=== PATIENT | female | born 1980 | race Caucasian/White ===

== ENCOUNTER 2020-04-05 17:05 | Emergency (ER) | payer OTHER, SELFPAY ==
[2020-04-05 17:26] VITALS: BP 125/80; PULSE 95; RESP 20; TEMP 36.3; O2SAT 96
--- NOTE | 2020-04-05 17:33 | ED.HEATRA ---
HPI - Head Injury General Chief complaint: Headache Stated complaint: face injury Time Seen by Provider: 04/05/20 17:09 Source: patient and RN notes reviewed Mode of arrival: ambulatory Limitations: no limitations History of Present Illness HPI Narrative: Patient states she was walking out of an office yesterday. She tripped over her feet and hit the edge of the door with her forehead. She still has a headache. She having some mild nausea. She had no loss of consciousness. She denies any change in her mentation. She denies any difficulty walking. She denies any visual changes. Complaint: head injury Onset (ago): day(s) (1) Mechanism of Injury: other Place: other (business ) Loss of Consciousness: no Severity: moderate Quality: dull and aching Radiation: none Other Injuries: none Associated symptoms: nausea Related Data Home Medications Medication Instructions Recorded Confirmed albuterol sulfate 2 inh INHALATION Q4-6H PRN 04/05/20 04/05/20 atorvastatin 40 mg PO DAILY 04/05/20 04/05/20 furosemide 20 mg PO DAILY 04/05/20 04/05/20 glimepiride 4 mg PO DAILY 04/05/20 04/05/20 linagliptin [Tradjenta] 5 mg PO DAILY 04/05/20 04/05/20 lisinopril 10 mg PO DAILY 04/05/20 04/05/20 meloxicam 15 mg PO DAILY 04/05/20 04/05/20 sertraline 100 mg PO DAILY 04/05/20 04/05/20 Allergies Allergy/AdvReac Type Severity Reaction Status Date / Time insulin glargine Allergy Unknown Verified 04/05/20 17:54 [From Lantus U-100 Insulin] Review of Systems Review of Systems: All systems reviewed & are unremarkable except as noted in HPI and below PMFSH Past Medical History Medical History (Updated 04/05/20 @ 17:41 by Francisco Javier Diaz MD) Hyperlipidemia Hypertension Morbid obesity Type 2 diabetes mellitus Surgical History Surgical History (Updated 04/05/20 @ 17:41 by Francisco Javier Diaz MD) History of cholecystectomy History of knee surgery Previous section Social History Social History (Updated 04/05/20 @ 17:41 by Francisco Javier Diaz MD) Smoking packs per day: 1 Smoking cigarettes per day: 20.0 Smoking status: Current every day smoker Tobacco type: cigarettes Alcohol intake: never Substance use: never Gender identity (if verbalized by the patient): Female Exam Const: General: healthy appearing, no acute distress and alert Nutritional Appearance: well nourished and obese morbidly obese Orientation/consciousness: patient oriented x3 Other: Female nurse in room during examination. HENMT: Head: normal to inspection and contusion ( center of Forehead with some mild swelling) Ears: external ears normal and TM's normal bilaterally ( no hemotympanum) General nose exam: Normal external nose present and Normal nares present Face and sinus: normal facial exam Eyes: Conjunctivae: conjunctivae normal Pupils: Equal, round and reactive pupils present EOM: EOMs intact bilaterally Direct Ophthalmoscopy: no photophobia Neck: Neck: normal visual inspection Resp: Effort & Inspection: normal respiratory effort Auscultation: clear to auscultation bilaterally Cardio: Rate: regular rate Rhythm: regular rhythm GI: GI Palp: Yes Soft to palpation and No Tenderness to palpation present (GI) Auscultation: normal bowel sounds Back/Spine/Pelvis: Cervical Spine: cervical ROM normal Thoracic/Lumbar Spine: thoraco-lumbar ROM normal Skin: General skin exam: normal color Rashes: no rashes Neuro: General: patient oriented x3, moves all extremities and no focal motor deficits Cranial nerves: Yes Nystagmus not present Speech: normal speech Gait exam (Neuro): Normal gait present Extrem: General: normal to inspection and no clubbing, cyanosis or edema Psych: Appearance: grossly normal and well kempt Mental Status: mental status grossly normal Attitude: cooperative Thought content: Yes Normal thought content present Course Vital Signs Vital signs: Vital Signs Temperature 36.3 C L 04/05/20 17:26 Pulse
[2020-04-05] MEDS: KETOROLAC (*BKC) 60 MG/2 ML VIAL IM (17:38)
[2020-04-05] MEDS: ONDANSETRON HCL ODT 4 MG TABLET PO (17:39)
[2020-04-05 18:16] VITALS: PULSE 90; RESP 20; O2SAT 96
== END 2020-04-05 18:16 | disposition home or self-care (01) ==
PROVIDERS: Emergency Provider Emergency Medicine; PCP Physician Assistant
DX: G44.319 Acute post-traumatic headache, not intractable (principal)
CPT/HCPCS: 96372; 99283; A9270; J1885

== ENCOUNTER 2020-04-13 09:31 | Outpatient (CLI) | payer OTHER, SELFPAY ==
--- NOTE | ~2020-04-13 | MM_ITS ---
EXAMINATION: MM screening [facility] HISTORY: Screening mammogram TECHNIQUE: Craniocaudal and mediolateral oblique 3-D tomosynthesis images were obtained and synthetic 2-D images were generated. CAD analysis was submitted and interpreted. COMPARISON: None, baseline BREAST PARENCHYMAL COMPOSITION: There are scattered areas of fibroglandular density. FINDINGS: There is no evidence of suspicious mass, calcification, or architectural distortion to sugg est malignancy in either breast. IMPRESSION: 1. No mammographic evidence of malignancy. 2. Recommend routine screening mammography in one year. BI-RADS Category 1: Negative Reviewed, dictated and finalized at location A. 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
== END 2020-04-13 09:32 | disposition home or self-care (01) ==
LOC: CHSIMG 09:32
PROVIDERS: PCP Physician Assistant; Visit Provider Physician Assistant
DX: Z12.31 Encounter for screening mammogram for malignant neoplasm of breast (principal)
CPT/HCPCS: 77063; 77067

== ENCOUNTER 2020-06-17 12:06 | Outpatient (CLI) | payer OTHER, SELFPAY ==
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
== END 2020-06-17 12:07 | disposition home or self-care (01) ==
LOC: CHSIMG 12:08
PROVIDERS: PCP Family Medicine; Visit Provider Physician Assistant
DX: R68.84 Jaw pain (principal)
CPT/HCPCS: 70110

== ENCOUNTER 2020-11-14 20:30 | Emergency (ER) | payer OTHER, SELFPAY ==
--- NOTE | ~2020-11-14 | XR_ITS ---
EXAMINATION: XR knee LT 2V DATE: 11/14/2020 21:11 INDICATION: Left knee injury. TECHNIQUE: 2 views of left knee were obtained. COMPARISON: Left knee radiographs 12/30/2017 FINDINGS: Bone alignment is normal. No fracture. There is severe osteoarthritis of lateral and patell ofemoral compartments and mild osteoarthritis of medial compartment. No knee joint effusion. Calcific ations posterior to the knee are likely loose bodies in a Cooper's cyst. IMPRESSION: 1. Severe left knee osteoarthritis. Reviewed, dictated and finalized at location A.
[2020-11-14 20:35] VITALS: BP 120/78; PULSE 94; RESP 20; TEMP 36.9; O2SAT 96
[2020-11-14] MEDS: KETOROLAC (*BKC) 60 MG/2 ML VIAL IM (20:55)
[2020-11-14] MEDS: ONDANSETRON HCL ODT 4 MG TABLET PO (20:55)
--- NOTE | 2020-11-14 21:17 | ED.LOWEXIN ---
HPI - Extremity Injury (Lower) General Chief Complaint: Extremity Injury, Lower Stated Complaint: Fell yesterday Left foot and leg pain Source: patient Mode of arrival: wheelchair Limitations: no limitations History of Present Illness HPI Narrative: this is a 40-year-old female presents with left knee injury that occurred yesterday when she fell and hurt her knee tracing her 5-year-old, patient has some point tenderness anterior knee with decreased range of motion secondary to pain and inflammation. complaint: knee injury Onset (ago): day(s) Injury: Left: knee ( pain with decreased range of motion) Type of Injury: blunt Place: home Severity: moderate Severity scale (1-10): 8 Relieving factors: immobilization Exacerbating factors: weight bearing, movement and palpation Context: fall Related Data Home Medications Medication Instructions Recorded Confirmed albuterol sulfate 2 inh INHALATION Q4-6H PRN 04/05/20 11/14/20 atorvastatin 40 mg PO DAILY 04/05/20 11/14/20 furosemide 20 mg PO DAILY 04/05/20 11/14/20 glimepiride 4 mg PO DAILY 04/05/20 11/14/20 linagliptin [Tradjenta] 5 mg PO DAILY 04/05/20 11/14/20 lisinopril 10 mg PO DAILY 04/05/20 11/14/20 meloxicam 15 mg PO DAILY 04/05/20 11/14/20 sertraline 100 mg PO DAILY 04/05/20 11/14/20 Allergies Allergy/AdvReac Type Severity Reaction Status Date / Time insulin glargine Allergy Unknown Verified 04/05/20 17:54 [From Lantus U-100 Insulin] Review of Systems Review of Systems: All systems reviewed & are unremarkable except as noted in HPI and below PMFSH Past Medical History Medical History Hyperlipidemia Hypertension Morbid obesity Type 2 diabetes mellitus Surgical History Surgical History History of cholecystectomy History of knee surgery Previous section Social History Social History Smoking packs per day: 1 Smoking cigarettes per day: 20.0 Smoking status: Current every day smoker Tobacco type: cigarettes Alcohol intake: never Substance use: never Gender identity (if verbalized by the patient): Female Exam Const: General: no acute distress Orientation/consciousness: patient oriented x3 HENMT: Head: normal to inspection Eyes: General: appearance normal, both eyes and all related structures Conjunctivae: conjunctivae normal Pupils: Equal, round and reactive pupils present Neck: Neck: no lymphadenopathy and no meningeal signs Chest: Chest palpation & inspection: normal inspection of the chest Resp: Effort & Inspection: normal respiratory effort Cardio: Rate: regular rate Rhythm: regular rhythm GI: GI Palp: Yes Soft to palpation Percussion: Yes normal to percussion Urinary Catheter: Urinary Catheter: patent and draining Back/Spine/Pelvis: Back: no CVA tenderness Skin: General skin exam: normal color Rashes: no rashes Neuro: General: patient oriented x3, moves all extremities and no meningeal signs Extrem: Other: Tender anterior right knee and decreased range of motion secondary to pain and inflammation. Psych: Mental Status: mental status grossly normal Affect: normal affect Attitude: cooperative Course Course Emergency Course: Patient received IM Toradol with some minimal relief reviewed x-ray of the knee which shows no acute fractures patient continues to have pain and will give 2mg IM morphine. Vital Signs Vital signs: Vital Signs Temperature 36.9 C 11/14/20 20:35 Pulse Rate 94 11/14/20 20:35 Respiratory Rate 11/14/20 20:35 Blood Pressure 120/78 11/14/20 20:35 Pulse Oximetry 96 11/14/20 20:35 Temperature 36.9 C 11/14/20 20:35 Pulse Rate 94 11/14/20 20:35 Respiratory Rate 20 11/14/20 20:35 Blood Pressure 120/78 11/14/20 20:35 Pulse Oximetry 96 11/14/20 20:35 Critical Care Time Cri
[2020-11-14] MEDS: MORPHINE SULFATE (*CRX) 4 MG/ML INJ IM (21:25)
[2020-11-14 21:41] VITALS: BP 134/74; PULSE 84; RESP 20; TEMP 36.6; O2SAT 99
== END 2020-11-14 21:45 | disposition home or self-care (01) ==
PROVIDERS: Emergency Provider Emergency Medicine; PCP Family Medicine
DX: S86.912A Strain of unspecified muscle(s) and tendon(s) at lower leg level, left leg, initial encounter (principal); W19.XXXA Unspecified fall, initial encounter
CPT/HCPCS: 73560; 96372; 99283; 99284; A9270; J1885; J2270

== ENCOUNTER 2021-01-05 14:37 | Emergency (ER) | payer OTHER, SELFPAY ==
[2021-01-05 15:15] VITALS: BP 132/72; PULSE 88; RESP 16; TEMP 36.6; O2SAT 97
--- NOTE | 2021-01-05 15:34 | ED.DENTAL ---
HPI - Dental/Oral General Chief complaint: Dental/Oral Stated complaint: broken tooth-swelling and pain in jaw. Source: patient Mode of arrival: ambulatory Limitations: no limitations History of Present Illness HPI Narrative: This is a 40-year-old female that presents after she had a tooth fracture broken tooth right upper molar currently with no fever chills no nausea vomiting no shortness of breath although she does have pain that she rates about 8/10 and surrounding gum inflammation with no drainage does have right submandibular gland swelling and tenderness with palpation. MD Complaint: tooth pain and tooth injury Teeth map: 1. fractured tooth right upper molar with surrounding gum inflammation jaw swelling and tender submandibular gland. Onset (ago): day(s) Duration: constant Severity: moderate Severity scale (1-10): 8 Relieving factors: nothing Exacerbating factors: nothing Related Data Home Medications Medication Instructions Recorded Confirmed albuterol sulfate 2 inh INHALATION Q4-6H PRN 04/05/20 11/14/20 atorvastatin 40 mg PO DAILY 04/05/20 11/14/20 furosemide 20 mg PO DAILY 04/05/20 11/14/20 glimepiride 4 mg PO DAILY 04/05/20 11/14/20 linagliptin [Tradjenta] 5 mg PO DAILY 04/05/20 11/14/20 lisinopril 10 mg PO DAILY 04/05/20 11/14/20 meloxicam 15 mg PO DAILY 04/05/20 11/14/20 sertraline 100 mg PO DAILY 04/05/20 11/14/20 Allergies Allergy/AdvReac Type Severity Reaction Status Date / Time insulin glargine Allergy Unknown Verified 04/05/20 17:54 [From Lantus U-100 Insulin] Review of Systems Review of Systems: All systems reviewed & are unremarkable except as noted in HPI and below PMFSH Past Medical History Medical History Hyperlipidemia Hypertension Morbid obesity Type 2 diabetes mellitus Surgical History Surgical History History of cholecystectomy History of knee surgery Previous section Social History Social History Smoking packs per day: 1 Smoking cigarettes per day: 20.0 Smoking status: Current every day smoker Tobacco type: cigarettes Alcohol intake: never Substance use: never Gender identity (if verbalized by the patient): Female Exam Const: General: no acute distress and alert Orientation/consciousness: patient oriented x3 HENMT: Head: normal to inspection Eyes: Conjunctivae: conjunctivae normal Pupils: Equal, round and reactive pupils present Neck: Neck: normal visual inspection, no lymphadenopathy and no meningeal signs Chest: Chest palpation & inspection: normal inspection of the chest GI: Auscultation: normal bowel sounds Urinary Catheter: Urinary Catheter: patent and draining Back/Spine/Pelvis: Back: no CVA tenderness Neuro: General: patient oriented x3, moves all extremities and no meningeal signs Extrem: General: normal to inspection and no pedal edema Psych: Mental Status: mental status grossly normal Course Course Emergency Course: Patient with some fractured tooth with surrounding gum inflammation medical assistant prn a dose of IM Toradol and will be sending pain medication and antibiotics and advised follow-up with her dentist. Vital Signs Vital signs: Vital Signs Temperature 36.6 C 01/05/21 15:15 Pulse Rate 88 01/05/21 15:15 Respiratory Rate 16 01/05/21 15:15 Blood Pressure 132/72 01/05/21 15:15 Pulse Oximetry 97 01/05/21 15:15 Temperature 36.6 C 01/05/21 15:15 Pulse Rate 88 01/05/21 15:15 Respiratory Rate 16 01/05/21 15:15 Blood Pressure 132/72 01/05/21 15:15 Pulse Oximetry 97 01/05/21 15:15 Critical Care Time Critical Care Time Critical Care Time: No Discharge Plan Discharge Clinical Impression: Toothache, Dental abscess Fracture of tooth Qualifiers: Encounter type: initial encounter Fracture type: closed Qualifi
[2021-01-05] MEDS: KETOROLAC (*BKC) 60 MG/2 ML VIAL IM (15:46)
== END 2021-01-05 15:56 | disposition home or self-care (01) ==
PROVIDERS: Emergency Provider Emergency Medicine; PCP Family Medicine
DX: S02.5XXA Fracture of tooth (traumatic), initial encounter for closed fracture (principal)
CPT/HCPCS: 96372; 99283; J1885

== ENCOUNTER 2021-04-17 11:12 | Outpatient (CLI) | payer OTHER, SELFPAY ==
--- NOTE | ~2021-04-17 | XR_ITS ---
XR knee LT 3V DATE: 04/17/2021 11:33 INDICATION: Left knee pain TECHNIQUE: 4 views COMPARISON: 11/14/2020 left knee FINDINGS: There is prominent tricompartment osteoarthritis, most severe at the lateral and patellofem oral compartments.. 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 No fracture or dislocation or knee joint effusion. No periosteal reaction or bone destruction. IMPRESSION: Tricompartment osteoarthritis, most pronounced at the lateral and patellofemoral componen ts Posterior osteochondromatosis Osteopenia Reviewed, dictated and finalized at location A. 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
== END 2021-04-17 11:13 | disposition home or self-care (01) ==
LOC: CHSIMG 11:15
PROVIDERS: PCP Family Medicine; Visit Provider Physician Assistant
DX: M25.562 Pain in left knee (principal)
CPT/HCPCS: 73562

== ENCOUNTER 2021-08-05 09:47 | Outpatient (CLI) | payer OTHER, SELFPAY ==
--- NOTE | ~2021-08-05 | MR_ITS ---
EXAMINATION: MR lumbar spine wo con DATE: 08/05/2021 11:54 INDICATION: Low back pain. TECHNIQUE: Magnetic resonance imaging (MRI) of the lumbar spine was performed without intravenous con trast. Sequences included sagittal T2-weighted FSE, sagittal STIR FSE, sagittal T1-weighted FSE, and axial T2-weighted FSE. COMPARISON: Lumbar spine MRI 04/09/2009 FINDINGS: There is 9 degrees levocurvature of lumbar spine. There are Schmorl's nodes at most levels. There is mildly decreased disc height at T12-L1 and L1-L2, moderately decreased disc height from L2- L3 through L4-L5, and mildly decreased disc height at L5-S1. The conus medullaris is at T12. The foll owing disc levels are specifically discussed: T12-L1: The disc is bulging with superimposed central extrusion. There is severe bilateral facet join t osteoarthritis. There is hypertrophy of the ligamentum flavum on the left. There is mild left neura l foraminal stenosis. There is severe central canal stenosis at the midline. There is asymmetric az re stenosis of left lateral recess. L1-L2: The disc is bulging. There is moderate bilateral facet joint osteoarthritis. There is mild merissa ateral neural foraminal stenosis. There is mild central canal stenosis. L2-L3: The disc is bulging with superimposed central extrusion. There is severe bilateral facet joint osteoarthritis. There is moderate bilateral neural foraminal stenosis. There is mild central canal s tenosis. There is moderate stenosis of right lateral recess. L3-L4: The disc is bulging with superimposed central extrusion. There is severe bilateral facet joint osteoarthritis. There is moderate right and mild left neural foraminal stenosis. There is mild centr al canal stenosis. There is moderate stenosis of right lateral recess. L4-L5: The disc is bulging and has an annular fissure. There is moderate right and severe left facet joint osteoarthritis. There is moderate bilateral neural foraminal stenosis. There is mild central ca nal stenosis. L5-S1: The disc is bulging and has an annular fissure. There is severe bilateral facet joint osteoart hritis. There is moderate bilateral neural foraminal stenosis. There is mild central canal stenosis. IMPRESSION: 1. Severe lumbar spondylosis, worsened from 04/09/2009. Reviewed, dictated and finalized at location A.
== END 2021-08-05 09:48 | disposition home or self-care (01) ==
LOC: CHSIMG 09:49
PROVIDERS: PCP Family Medicine; Visit Provider Family Medicine
DX: M54.50 Low back pain, unspecified (principal)
CPT/HCPCS: 72148

== ENCOUNTER 2022-10-29 16:58 | Outpatient (CLI) | payer OTHER, SELFPAY ==
--- NOTE | ~2022-10-29 | XR_ITS ---
EXAMINATION: XR shoulder RT min 2V, XR clavicle RT, XR_CERV2-3V_CR DATE: 10/29/2022 17:25 INDICATION: Right sided neck pain and right shoulder and clavicle pain post fall TECHNIQUE: 1. AP, lateral, odontoid and lateral swimmer's views of the cervical spine were obtained. 2. AP internally and externally rotated, AP oblique externally rotated and transscapular Y views of t he right shoulder were obtained. 3. AP and cephalad angled AP views of the right clavicle were obtained. COMPARISON: None FINDINGS: Cervical spine: Mild cervical dextrocurvature and mild upper thoracic levocurvature. Sagittal alignment is normal. No rmal atlantoaxial interval. Vertebral body heights are normal. Disc heights are normal with anterior degenerative endplate osteophytes at C3-C4 and C6-C7. Multilevel mild cervical facet osteoarthritis. Prevertebral soft tissues are unremarkable. Visualized portions of the upper lungs are clear. Right clavicle and shoulder: Alignment is normal. No fracture. Mild osteoarthritis at the right acromioclavicular joint. Moderate right acromioclavicular osteoarthritis with small inferiorly directed marginal osteophytes. There is also a small subacromial spur. Mild cystic change at the lesser tuberosity which can be seen with sub scapularis tendon disease. IMPRESSION: 1. Mild cervical dextrocurvature with mild spondylosis. 2. Mild right glenohumeral and moderate acromioclavicular osteoarthritis. Reviewed, dictated and finalized at location A. IMPRESSION: 1. Mild cervical dextrocurvature with mild spondylosis. 2. Mild right glenohumeral and moderate acromioclavicular osteoarthritis. IMPRESSION: 1. Mild cervical dextrocurvature with mild spondylosis. 2. Mild right glenohumeral and moderate acromioclavicular osteoarthritis.
== END 2022-10-29 16:59 | disposition home or self-care (01) ==
LOC: CHSIMG 17:00
PROVIDERS: PCP Physician Assistant; Visit Provider Physician Assistant
DX: M54.2 Cervicalgia (principal); M25.511 Pain in right shoulder; M89.8X1 Other specified disorders of bone, shoulder; M43.02 Spondylolysis, cervical region; M19.011 Primary osteoarthritis, right shoulder
CPT/HCPCS: 72040; 73000; 73030

== ENCOUNTER 2023-04-14 13:27 | Emergency (ER) | payer OTHER, SELFPAY ==
--- NOTE | ~2023-04-14 | XR_ITS ---
EXAM: XR knee LT min 4V DATE: 04/14/2023 13:56 HISTORY: twisting injury lastnight w/ popping, pain throughout . COMPARISON: 04/17/2021. FINDINGS: Normal mineralization. No fracture or dislocation. No lytic or blastic lesion. Severe tric ompartmental osteoarthritis. No erosion or periosteal change. Osteochondromatosis. Moderate joint eff usion. IMPRESSION: No acute osseous finding in the left knee. Reviewed, dictated and finalized at location K. LOPMENTAL SPECIALIST
[2023-04-14 13:31] VITALS: BP 150/99; PULSE 97; RESP 16; TEMP 36.6; O2SAT 96
--- NOTE | 2023-04-14 13:33 | ED.LOWEXIN ---
HPI - Extremity Injury (Lower) General Chief Complaint: Extremity Injury, Lower Stated Complaint: L knee injury/fall Time Seen by Provider: 04/14/23 13:31 Source: patient Mode of arrival: ambulatory Limitations: no limitations History of Present Illness HPI Narrative: Patient is a 42-year-old female with a left knee injury last night. She was cleaning up a room and twisted awkwardly and ran into the corner of the table. MD complaint: knee injury ( Left) Onset (ago): day(s) (1) Injury: Left: knee Type of Injury: blunt and other ( twist) Place: home Severity: moderate Severity scale (1-10): 5 Relieving factors: immobilization Exacerbating factors: weight bearing and movement Context: direct blow and other ( twist of the knee left) Associated symptoms: snap/pop sensation, swelling and able to partially bear weight Other symptoms: none Related Data Home Medications Medication Instructions Recorded Confirmed albuterol sulfate 90 mcg/actuation 2 inh inhalation Q4-6H PRN 04/05/20 12/29/21 aerosol inhaler Shortness Of Breath atorvastatin 40 mg tablet 40 mg PO DAILY 04/05/20 12/29/21 furosemide 20 mg tablet 20 mg PO DAILY 04/05/20 12/29/21 glimepiride 4 mg tablet 4 mg PO DAILY 04/05/20 12/29/21 linagliptin 5 mg tablet (Tradjenta) 5 mg PO DAILY 04/05/20 12/29/21 lisinopril 10 mg tablet 10 mg PO DAILY 04/05/20 12/29/21 meloxicam 15 mg tablet 15 mg PO DAILY 04/05/20 12/29/21 sertraline 100 mg tablet 100 mg PO DAILY 04/05/20 12/29/21 Allergies Allergy/AdvReac Type Severity Reaction Status Date / Time insulin glargine Allergy Unknown Verified 04/14/23 13:58 [From Lantus U-100 Insulin] Review of Systems Review of Systems: All systems reviewed & are unremarkable except as noted in HPI and below Constitutional: Constitutional: Reports no additional constitutional complaints Eyes: Eyes: Reports no additional eye complaints ENT: Reports system reviewed and no additional complaints, except as documented Cardiovascular: Cardiovascular: Reports no additional cardiovascular complaints Respiratory: Respiratory: Reports no additional respiratory complaints Gastrointestinal: Gastrointestinal: Reports no additional gastrointestinal complaints Genitourinary: Genitourinary: Reports no additional female genitourinary complaints Musculoskeletal: Musculoskeletal: Reports no additional musculoskeletal complaints Integumentary/Breasts: Skin/Breast: Reports system reviewed and no additional complaints, except as docu Neurologic: Reports system reviewed and no additional complaints, except as documented Psychiatric: Psychiatric: Reports no additional psychiatric complaints Endocrine: Endocrine: Reports no additional endocrine complaints Hematologic/Lymphatic: Hematologic/Lymphatic: Reports no additional hematologic/lymphatic complaints Allergic/Immunologic: Allergic/Immunologic: Reports no additional allergic/immunologic complaints PMFSH Past Medical History Medical History Hyperlipidemia Hypertension Morbid obesity Type 2 diabetes mellitus Surgical History Surgical History History of cholecystectomy History of knee surgery Previous section Social History Social History Smoking packs per day: 1 Smoking cigarettes per day: 20.0 Smoking status: Current every day smoker Tobacco type: cigarettes Alcohol intake: never Substance use: never Gender identity (if verbalized by the patient): Female Exam Const: General: healthy appearing Nutritional Appearance: well nourished Orientation/consciousness: patient oriented x3 HENMT: Head: normal to inspection Ears: external ears normal Face/Nose/Sinus: Normal external nose present Eyes: Conjunctivae: conjunctivae normal Pupils: Equal, round and reactive pupils present EOM: EOMs inta
[2023-04-14] MEDS: KETOROLAC (*BKC) 60 MG/2 ML VIAL IM (14:03)
--- NOTE | 2023-04-14 14:53 | PC.NURSE ---
On 04/14/23, the student, Kathrine Mcneil, provided care and completed [facility] documentation on this patient. I have reviewed the student's documentation and agree with the findings.
[2023-04-14 15:04] VITALS: BP 150/99; PULSE 97; RESP 16; TEMP 36.6; O2SAT 96
== END 2023-04-14 15:04 | disposition home or self-care (01) ==
PROVIDERS: Emergency Provider Emergency Medicine; PCP Family Medicine
DX: S83.8X2A Sprain of other specified parts of left knee, initial encounter (principal); E78.5 Hyperlipidemia, unspecified; I10 Essential (primary) hypertension; E11.9 Type 2 diabetes mellitus without complications; F17.210 Nicotine dependence, cigarettes, uncomplicated; X50.0XXA Overexertion from strenuous movement or load, initial encounter; Y92.009 Unspecified place in unspecified non-institutional (private) residence as the place of occurrence of the external cause
CPT/HCPCS: 73564; 96372; 99283; J1885

== ENCOUNTER 2023-11-27 09:48 | Outpatient (CLI) | payer OTHER, SELFPAY ==
--- NOTE | ~2023-11-27 | XR_ITS ---
EXAMINATION: XR lumbar spine 2-3V DATE: 11/27/2023 10:15 INDICATION: Low back pain. TECHNIQUE: 3 views of lumbar spine were obtained. COMPARISON: Lumbar spine radiographs 05/30/2009, MRI 08/05/2021 FINDINGS: There is 12 degrees levoscoliosis of lumbar spine. There is mild chronic anterior wedging o f T11 vertebral body. There is mildly decreased disc height at L1-L2 and L2-L3, moderately decreased disc height at L3-L4 and L4-L5, and mildly decreased disc height at L5-S1. There are endplate osteoph ytes at all levels. There is multilevel severe facet joint osteoarthritis. Surgical clips in the righ t upper quadrant are likely from cholecystectomy. IMPRESSION: 1. Moderate lumbar spondylosis. 2. Lumbar levoscoliosis. Reviewed, dictated and finalized at location A.
== END 2023-11-27 09:49 | disposition home or self-care (01) ==
LOC: CHSIMG 09:51
PROVIDERS: PCP Family Medicine; Visit Provider Physician Assistant
DX: M54.50 Low back pain, unspecified (principal); M43.06 Spondylolysis, lumbar region; M41.86 Other forms of scoliosis, lumbar region
CPT/HCPCS: 72100

== ENCOUNTER 2024-01-04 12:14 | Emergency (ER) | payer OTHER, SELFPAY ==
[2024-01-04 12:14] VITALS: BP 160/96; PULSE 106; RESP 20; TEMP 36.6; O2SAT 100
[2024-01-04] MEDS: AMOXICILLIN/CLAVULANATE K 875-125 MG TAB 1 TABLET PO (12:43)
[2024-01-04] MEDS: INSULIN HUMAN REGULAR (*BKC) 1,000 UNITS/10 ML VIAL 6 UNITS SUB-Q (12:43)
[2024-01-04] MEDS: NAPROXEN 250 MG TABLET 500 MG PO (12:43)
--- NOTE | 2024-01-04 12:47 | ED.DENTAL ---
HPI - Dental/Oral General Chief complaint: Dental/Oral Stated complaint: mouth pain Time Seen by Provider: 01/04/24 12:27 Source: patient and family Mode of arrival: ambulatory Limitations: no limitations History of Present Illness HPI Narrative: this is a 43-year-old female with recently seen her dentist and had dental extraction currently has surrounding gum inflammation with swollen tender submandibular gland on the right, has some history of diabetes and had a blood sugar of a little over 300. Otherwise no nausea vomiting abdominal pain no chest pain no shortness of breath no nausea vomiting no dysuria no flank pain. MD Complaint: tooth pain Teeth map: 1. dry socket was surrounding gum inflammation with a tender swollen right submandibular gland Onset (ago): day(s) Duration: constant Severity: moderate Severity scale (1-10): 6 Related Data Home Medications Medication Instructions Recorded Confirmed albuterol sulfate 90 mcg/actuation 2 inh inhalation Q4-6H PRN 04/05/20 12/29/21 aerosol inhaler Shortness Of Breath atorvastatin 40 mg tablet 40 mg PO DAILY 04/05/20 12/29/21 furosemide 20 mg tablet 20 mg PO DAILY 04/05/20 12/29/21 glimepiride 4 mg tablet 4 mg PO DAILY 04/05/20 12/29/21 linagliptin 5 mg tablet (Tradjenta) 5 mg PO DAILY 04/05/20 12/29/21 lisinopril 10 mg tablet 10 mg PO DAILY 04/05/20 12/29/21 meloxicam 15 mg tablet 15 mg PO DAILY 04/05/20 12/29/21 sertraline 100 mg tablet 100 mg PO DAILY 04/05/20 12/29/21 Allergies Allergy/AdvReac Type Severity Reaction Status Date / Time insulin glargine Allergy Unknown Verified 01/04/24 12:19 [From Lantus U-100 Insulin] Review of Systems Review of Systems: All systems reviewed & are unremarkable except as noted in HPI and below PMFSH Past Medical History Medical History Hyperlipidemia Hypertension Morbid obesity Type 2 diabetes mellitus Surgical History Surgical History History of cholecystectomy History of knee surgery Previous section Social History Social History Smoking packs per day: 1 Smoking cigarettes per day: 20.0 Smoking status: Current every day smoker Tobacco type: cigarettes Alcohol intake: never Substance use: never Gender identity (if verbalized by the patient): Female Exam Const: General: healthy appearing and no acute distress Nutritional Appearance: well nourished and obese Orientation/consciousness: patient oriented x3 Limitations: no limitations HENMT: Other: Right lower gum inflammation in the molar and premolar area with submandibular gland inflammation and tenderness with palpation Neck: Neck: normal visual inspection Chest: Chest palpation & inspection: normal inspection of the chest Resp: Effort & Inspection: normal respiratory effort Auscultation: clear to auscultation bilaterally Cardio: Rate: regular rate Rhythm: regular rhythm GI: Auscultation: normal bowel sounds : General: Yes bladder normal to palpation Skin: General skin exam: normal color Rashes: no rashes Wounds: no wounds Course Course Emergency Course: patient had a blood glucose level of 334 here in the emergency department patient received 5 6units of regular insulin, for her dental pain received naproxen and a dose of Augmentin. Vital Signs Vital signs: Vital Signs Temperature 36.6 C 01/04/24 12:14 Pulse Rate 106 H 01/04/24 12:14 Respiratory Rate 20 01/04/24 12:14 Blood Pressure 160/96 H 01/04/24 12:14 Pulse Oximetry 100 01/04/24 12:14 Oxygen Delivery Room Air 01/04/24 12:14 Temperature 36.6 C 01/04/24 12:14 Pulse Rate 106 H 01/04/24 12:14 Respiratory Rate 20 01/04/24 12:14 Blood Pressure 160/96 H 01/04/24 12:14 Pulse Oximetry 100 01/04/24 12:14 Oxygen Delivery Room Air 01/04/24 12:14 Critical Care Time Critical Care Time Critical Care Time: No Discharge Plan Discharge Clinical Impression: Dental abscess, Hyperglycemia Patient Disposition: Home, Self-Care Condition: Stable Instructions: Antibiotic Form, Dental Abscess (ED), Diabetic Hyperglycemia (ED) Additional Instructions: advised take medication as prescribed and follow with primary and dentist within a week for further evaluation and treatment. Prescriptions: New amoxicillin-pot clavulanate [Augmentin] 500-125 mg tablet 1 tablet PO TID 10 Days Qty: 30 0RF naproxen 500 mg tablet 500 mg PO BID PRN (Reason: pain) Qty: 14 0RF No Action amoxicillin 500 mg tablet 500 mg PO TID Qty: 30 0RF hydrocodone-acetaminophen 5-325 mg tablet 1 tablet PO Q8H PRN (Reason: pain) Qty: 15 0RF atorvastatin 40 mg tablet 40 mg PO DAILY meloxicam 15 mg tablet 15 mg PO DAILY sertraline 100 mg tablet 100 mg PO DAILY lisinopril 10 mg tablet 10 mg PO DAILY glimepiride 4 mg tablet 4 mg PO DAILY furosemide 20 mg tablet 20 mg PO DAILY albuterol sulfate 90 mcg/actuation HFA aerosol inhaler 2 inh INHALATION Q4-6H PRN (Reason: Shortness Of Breath) Tradjenta 5 mg tablet 5 mg PO DAILY Follow-up/Referrals: Abram,MD Matthias [Primary Care Provider] - Stand Alone Forms: Work/School Release IP Time of Disposition: 12:52
--- NOTE | 2024-01-04 12:57 | PC.NURSE ---
Per ERP patient may go. no need to stay and check sugar again. Patient is going home and can continue to manage glucose levels at home.
[2024-01-04 12:59] VITALS: BP 152/85; PULSE 95; RESP 20; TEMP 36.6; O2SAT 100
[2024-01-05 00:08] LABS: Glucose Point of Care 334 mg/dl (65-105)
== END 2024-01-04 12:59 | disposition home or self-care (01) ==
PROVIDERS: Emergency Provider Emergency Medicine; PCP Family Medicine
DX: K04.7 Periapical abscess without sinus (principal); E11.65 Type 2 diabetes mellitus with hyperglycemia; I10 Essential (primary) hypertension; E78.5 Hyperlipidemia, unspecified; F17.210 Nicotine dependence, cigarettes, uncomplicated
CPT/HCPCS: 82948; 99283; A9270; J1815